=== PATIENT | male | born 1990 | race Caucasian/White ===

== ENCOUNTER 2019-06-23 09:55 | Emergency (ER) | payer OTHER ==
[2019-06-23 10:44] VITALS: BP 125/68
[2019-06-23 11:13] LABS: Hepatitis B Surface Antigen Nonreactive (Nonreactive)
[2019-06-23 11:27] LABS: HIV 4th Generation Nonreactive (Nonreactive)
[2019-06-23 11:31] LABS: Hepatitis B Surface Ab Immune (Immune); Hepatitis C Antibody Negative (Negative)
--- NOTE | 2019-06-23 13:09 | ED ---
- HPI Summary HPI Summary: This patient is a 29-year-old male presenting to the ED with the concern for needle stick. Patient states while drawing the blood of the patient on [address] he was stuck into the left radial side of the middle finger. Pt was combative during blood draw which caused the accidental needlstick. Denies any other symptoms or pain. Blood draw was obtained. Pt has no know hep or HIV. - History of Current Complaint Chief Complaint: EDGeneral Stated Complaint: NEEDLE STICK PER PT Time Seen by Provider: 06/23/19 10:03 Needlestick: Solid Needle Blood on Needle: No Depth of Needlestick: Puncture Bleeding at Site: No Treatment COLLECTIONS ANALYST: Cleaned Wound - Source Information HIV: No Hepatitis: No - Risk Factors Needlestick Risk Factor: Low Risk: Solid Needle - Other Discussed Post-Exposure prophylaxis (PEP) for HIV: Declined Discussed PEP for Hepatitis-B: Declined Serologic Testing (HIV/HBV) Declined by Patient: Yes PMH/Surg Hx/FS Hx/Imm Hx Previously Healthy: Yes - Immunization History Hx Pertussis Vaccination: No Immunizations Up to Date: Yes Infectious Disease History: No Infectious Disease History: Denies: Traveled Outside the [place] in Last 30 Days - Social History Occupation: Employed Full-time Lives: With Family Alcohol Use: Occasionally Hx Substance Use: No Substance Use Type: Reports: None Hx Tobacco Use: Yes Smoking Status (MU): Heavy Every Day Tobacco Smoker Review of Systems Constitutional: Negative Negative: Fever, Chills, Fatigue, Skin Diaphoresis Negative: Palpitations, Chest Pain Negative: Shortness Of Breath, Cough Positive: Other - small puncture wound to the medial left distal tip of middle finger Neurological: Negative All Other Systems Reviewed And Are Negative: Yes Physical Exam Triage Information Reviewed: Yes Vital Signs On Initial Exam: Initial Vitals Temp Pulse Resp BP Pulse Ox 97.9 F 66 16 140/97 99 06/23/19 09:58 06/23/19 09:58 06/23/19 09:58 06/23/19 09:58 06/23/19 09:58 Vital Signs Reviewed: Yes Appearance: Positive: Well-Appearing, Well-Nourished Skin: Positive: Skin Color Reflects Adequate Perfusion, Other - small puncture wound to the medial left distal tip of middle finger Head/Face: Positive: Normal Head/Face Inspection Eyes: Positive: Normal, EOMI Neck: Positive: Supple, No Lymphadenopathy Respiratory/Lung Sounds: Positive: Clear to Auscultation, Breath Sounds Present Cardiovascular: Positive: RRR, Pulses are Symmetrical in both Upper and Lower Extremities Musculoskeletal: Positive: Strength/ROM Intact Neurological: Positive: Speech Normal Psychiatric: Positive: Affect/Mood Appropriate Diagnostics - Vital Signs Vital Signs Temp Pulse Resp BP Pulse Ox 06/23/19 10:43 98.5 F 66 16 125/68 98 06/23/19 09:58 97.9 F 66 16 140/97 99 - Laboratory Lab Results: Lab Results 06/23/19 06/23/19 Range/Units 06:00 06:00 Hepatitis B Antibody Immune (Immune) Hep Bs Antigen Nonreactive (Nonreactive) Hepatitis C Antibody Negative (Negative) Hepatitis C Ab Index 0.28 s/c HIV 1&2 Ab/P24 Ag 4thGn Nonreactive (Nonreactive) Lab Statement: Any lab studies that have been ordered have been reviewed, and results considered in the medical decision making process. Needlestick Course/Dx - Course Course Of Treatment: This patient's evaluated for needle stick this morning from a combative patient. Patient has a small 1 mm pinpoint needle stick to the medial left distal tip of the middle finger. Patient denies any pain or symptoms at this time. Patient remains hospitalized on [address] and has no known HIV or hepatitis. Labs were obtained and patient was evaluated. He was able to cleanse the wound thoroughly just after the needle stick. Tetanus UTD x 2 mos ago. - Diagnoses Provider Diagnoses: Needlestick injury accident Discharge ED - Sign-Out/Discharge Documenting (check all that apply): Patient Departure Patient Received Moderate/Deep Sedation with Procedure: No - Discharge Plan Condition: Stable Disposition: HOME Referrals: No Primary Care Phys,NOPCP [Primary Care Provider] - - Billing Disposition and Condition Condition: STABLE Disposition: Home
== END 2019-06-23 10:35 | disposition home or self-care (01) ==
LOC: ED 09:55
DX: S61.233A Puncture wound without foreign body of left middle finger without damage to nail, initial encounter (principal); W46.1XXA Contact with contaminated hypodermic needle, initial encounter; Y93.89 Activity, other specified; Y92.230 Patient room in hospital as the place of occurrence of the external cause; Y99.0 Civilian activity done for income or pay; F17.200 Nicotine dependence, unspecified, uncomplicated
CPT/HCPCS: 36415; 86706; 86803; 87340; 87389; 99281

== ENCOUNTER 2024-01-30 05:45 | Observation (INO) ==
[~2024-01-30 05:45] MED LIST: Naloxone 0.4 mg VIAL 0.4 mg/ml 1 ml VIAL IV PRN
[2024-01-30] MEDS ORDERED: ceFAZolin 2 GM PREMIX 2 GM/50 ML BAG ONE (06:00)
[2024-01-30] MEDS ORDERED: Chlorhexidine MOUTHWASH 0.12% 15 ML UDC ONE (06:00)
[2024-01-30 06:22] LABS: Rapid COVID-19 Molecular Undetected (Undetected)
[2024-01-30] MEDS ORDERED: Propofol 1,000 MG/100 ML BTL ONE (06:58)
[2024-01-30] MEDS ORDERED: Propofol 10 MG/ML 20 ML BTL ONE ×2 (07:05→07:11)
[2024-01-30] MEDS ORDERED: Rocuronium 50 mg VIAL 10 mg/ml 5 ml VIAL (50 mg) ONE (07:05)
[2024-01-30] MEDS ORDERED: Thrombin 5,000 UNITS(BOVINE) for Ultrasound Guided Pseudoaneursym ONE (07:06)
[2024-01-30] MEDS ORDERED: ceFAZolin VIAL VIAL ONE (07:06)
[2024-01-30] MEDS ORDERED: Lidocaine 1% w EPI 1:200,000 SDV 30 ML VIAL ONE (07:06)
[2024-01-30] MEDS ORDERED: Gelfoam Sponge SIZE 100 SPONGE ONE (07:06)
[2024-01-30] MEDS ORDERED: fentaNYL 250 mcg/5 ml 50 MCG/ML 5 ml VIAL (250 MCG) ONE (07:09)
[2024-01-30] MEDS ORDERED: Midazolam 5 mg/5 ml VIAL 1 mg/ml 5 ml VIAL (5 mg) ONE (07:10)
[2024-01-30] MEDS ORDERED: KETAMINE HCL 10 MG/ML 20 ml VIAL (200 MG) ONE (07:10)
[2024-01-30] MEDS ORDERED: Lidocaine 2% PF 5 ML VIAL ONE (07:12)
[2024-01-30] MEDS ORDERED: HYDROmorphone 0.5 MG/0.5 ML SYRINGE ONE (08:01)
[2024-01-30] MEDS ORDERED: Dexamethasone IV 4 MG/ML VIAL 1 ml VIAL ONE (08:06)
[2024-01-30] MEDS ORDERED: Acetaminophen IV 1 GM/100ML 1,000 MG/100 ML BAG IV ONE (08:39)
[2024-01-30] MEDS ORDERED: Phenylephrine 40 mcg/mL 10mL (400mcg) SYRINGE ONE (08:52)
[2024-01-30] MEDS ORDERED: Ondansetron 4 mg VIAL 2 MG/ML 2 ml VIAL ONE (09:03)
[2024-01-30] MEDS ORDERED: Calcium Carb (TUMS) 500 mg CHEW TAB PO PRN (09:23)
[2024-01-30] MEDS ORDERED: Dextran 70/Hypromellose Tears Eye Drops 15 ml BTL (for Artificials Tears) BOTH EYES PRN (09:23)
[2024-01-30] MEDS ORDERED: Phenol 1.4% Throat Spray BTL MT PRN (09:23)
[2024-01-30] MEDS ORDERED: Senna TAB 8.6 mg TAB PO PRN (09:23)
[2024-01-30] MEDS ORDERED: Morphine 2 MG/ML SYRINGE IV PRN (09:23)
[2024-01-30] MEDS ORDERED: Ondansetron 4 mg VIAL 2 MG/ML 2 ml VIAL IV PRN (09:23)
[2024-01-30] MEDS ORDERED: Benzocaine/Menthol LOZ MT PRN (09:23)
[2024-01-30] MEDS ORDERED: Magnesium Hydroxide LIQ 30 ML UDC PO PRN (09:23)
[2024-01-30] MEDS: Buffered Lidocaine 1% SYRIN 1 ml INTRADERM ONE (10:04)
[2024-01-30] MEDS ORDERED: HYDROmorphone 1 MG/1 ML SYRINGE ONE (10:06)
[2024-01-30] MEDS: HYDROmorphone 1 MG/1 ML SYRINGE IV PRN (10:11)
[2024-01-30] MEDS: Lactated Ringers 1000 ml BAG 1,000 ML IV SCH ×2 (12:13→12:14)
[2024-01-30] MEDS ORDERED: Nicotine GUM 4MG FRUIT FLAVOR PO PRN (14:17)
[2024-01-30] MEDS ORDERED: Nicotine PATCH 21 MG/24 HR PATCH TRANSDERM PRN (14:26)
[2024-01-30] MEDS ORDERED: Nicotine PATCH 21 MG/24 HR PATCH TRANSDERM SCH (15:00)
[2024-01-31 10:02] VITALS: BP 122/86
== END 2024-01-31 11:45 | disposition home or self-care (01) ==
LOC: OR 05:45 → SSU 05:45
PROVIDERS: ADMIT Neurological Surgery; ATTEND Neurological Surgery